=== PATIENT | female | born 1985 | race Caucasian/White ===

== ENCOUNTER 2016-12-07 20:14 | Emergency (ER) | payer BC, OTHER ==
[~2016-12-07] VITALS: Ht 172.7 cm; Wt 72.6 kg
[2016-12-07] MEDS ORDERED: oxyCODONE/APAP 10/325 1 TAB TABLET PO ONE (20:30)
[2016-12-07] MEDS ORDERED: ONDANSETRON ODT 4 MG TAB.RAPDIS PO ONE (20:30)
--- NOTE | 2016-12-07 20:31 | ED.ADGEN ---
Past History Past Medical History: Asthma Past Surgical History: Other Alcohol Use: Occasionally Drug Use: None Adult General Chief Complaint Chief Complaint " I caught a soft ball into my face..." HPI HPI Patient is a 31 year old female who presents with above hx and injury to Rt eye. Pt. denies vision changes, but can't open eye with adsistance because of edema. One cm laceration above and below eye. Review of Systems Review of Systems Constitutional: Denies fever or chills [] Eyes: Denies change in visual acuity, redness, or eye pain [] HENT: Denies nasal congestion or sore throat [] Respiratory: Denies cough or shortness of breath [] Cardiovascular: No additional information not addressed in HPI [] GI: Denies abdominal pain, nausea, vomiting, bloody stools or diarrhea [] : Denies dysuria or hematuria [] Musculoskeletal: Denies back pain or joint pain [] Integument: Denies rash or skin lesions [] Neurologic: Denies headache, focal weakness or sensory changes [] Endocrine: Denies polyuria or polydipsia [] Allergies Allergies Allergies Coded Allergies Type Severity Reaction Last Updated Verified No Known Allergies Allergy Unknown 11/06/13 No Physical Exam Physical Exam Constitutional: Well developed, well nourished, no acute distress, non-toxic appearance. [] HENT: Normocephalic, atraumatic, bilateral external ears normal, oropharynx moist, no oral exudates, nose normal. [] Eyes: PERRLA, EOMI, conjunctiva normal, no discharge. [] Neck: Normal range of motion, no tenderness, supple, no stridor. [] Cardiovascular:Heart rate regular rhythm, no murmur [] Lungs & Thorax: Bilateral breath sounds clear to auscultation [] Abdomen: Bowel sounds normal, soft, no tenderness, no masses, no pulsatile masses. [] Skin: Warm, dry, no erythema, no rash. [] Back: No tenderness, no CVA tenderness. [] Extremities: No tenderness, no cyanosis, no clubbing, ROM intact, no edema. [] Neurologic: Alert and oriented X 3, normal motor function, normal sensory function, no focal deficits noted. [] Psychologic: Affect normal, judgement normal, mood normal. [] EKG EKG [] Radiology/Procedures Radiology/Procedures [] Course & Med Decision Making Course & Med Decision Making Pertinent Labs and Imaging studies reviewed. (See chart for details) [] Final Impression Final Impression [] Problems: Dragon Disclaimer Dragon Disclaimer This electronic medical record was generated, in whole or in part, using a voice recognition dictation system. GEO JEFEFRSON MD Dec 07, 2016 20:31
[2016-12-07] MEDS ORDERED: LIDOCAINE 2% 20 ML VIAL. IJ ONE (20:45)
--- NOTE | 2016-12-07 21:08 | RAD ---
CT head without intravenous contrast History: Hit in right side of face with softball, swelling. Comparison: Same examinations November 06, 2013. Technique: Axial images are obtained of the head from the skull base through the vertex without IV contrast. Exposure: One or more of the following individualized dose reduction techniques were utilized for this examination: 1. Automated exposure control 2. Adjustment of the mA and/or kV according to patient size 3. Use of iterative reconstruction technique Findings: The ventricles are appropriate in size, shape, and location for the patient's age. No obvious intracranial mass, mass-effect, midline shift, hemorrhage or obvious acute infarction is identified. Basilar cisterns are patent. Bone windows demonstrate no acute calvarial abnormality. Impression: 1. No acute intracranial process. CT face without contrast Technique: CT of the face was performed without intravenous contrast. Axial, sagittal, and coronal reconstructions were obtained. Exposure: One or more of the following individualized dose reduction techniques were utilized for this examination: 1. Automated exposure control 2. Adjustment of the mA and/or kV according to patient size 3. Use of iterative reconstruction technique Findings: There is an acute medial right orbital wall fracture. The anterior medial orbital wall is displaced 5 mm medially. There is also a nondisplaced right orbital floor fracture. Orbital floor fracture fragment is displaced 4 mm inferiorly. There is evidence of mild thickening of the left inferior rectus. There is herniation of a small amount of orbital fat into the medial superior aspect of the right maxillary sinus. There is right periorbital soft tissue swelling. No right retro-orbital hemorrhage is identified. Minimal bilateral maxillary sinus mucosal disease is seen. There is opacification of a few right ethmoid air cells. Mild sphenoid sinus mucosal thickening is seen. Left orbit and orbital contents contents appear intact. Impression: 1. Acute right medial orbital wall and right orbital floor fractures. 2. There is evidence of mild thickening of the right inferior rectus muscle. Recommend clinical correlation with extraocular movements regarding possibility of entrapment. Electronically signed by: Dylon Mcfadden MD (12/07/2016 9:05 PM) [facility]
[2016-12-07 21:50] VITALS: BP 145/53
[2016-12-07] MEDS ORDERED: oxyCODONE/APAP 7.5/325 1 TAB TABLET PO ONE (23:00)
== END 2016-12-07 23:15 | disposition home or self-care (01) ==
LOC: ER 20:14
DX: S02.31XA Fracture of orbital floor, right side, initial encounter for closed fracture (principal); S09.90XA Unspecified injury of head, initial encounter; S01.111A Laceration without foreign body of right eyelid and periocular area, initial encounter; J45.909 Unspecified asthma, uncomplicated; W21.07XA Struck by softball, initial encounter; Y93.89 Activity, other specified; Y99.8 Other external cause status; Y92.89 Other specified places as the place of occurrence of the external cause
CPT/HCPCS: 12013; 70450; 70486; 99284; Q0162; J2001

== ENCOUNTER → 2021-04-08 | Outpatient (CLI) | payer OTHER | LOC: LAB 16:37 | PROVIDERS: ATTEND Obstetrics & Gynecology Reproductive Endocrinology | DX: Z31.41 Encounter for fertility testing (principal); O20.0 Threatened abortion; E66.3 Overweight; E03.9 Hypothyroidism, unspecified; D25.2 Subserosal leiomyoma of uterus | CPT/HCPCS: 36415; 82306; 84443; 84702; 86592; 86703; 86704; 86709; 86803; 86850; 87340; 87522 ==